=== PATIENT | female | born 1945 | race Caucasian/White ===

== ENCOUNTER 2020-01-12 20:19 | Emergency (ER) | payer MEDICARE, OTHER ==
[~2020-01-12] VITALS: Ht 160 cm; Wt 98.4 kg
--- NOTE | 2020-01-12 21:34 | NUR ---
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 Will come to [facility].
[2020-01-12 21:56] LABS: BASOPHILS # (AUTO) 0.02 x10^3/uL (0-0.1); BASOPHILS % (AUTO) 0 % (0-1); EOSINOPHILS # (AUTO) 0.15 x10^3/uL (0-0.4); EOSINOPHILS % (AUTO) 2 % (1-7); LYMPHOCYTES # (AUTO) 1.25 x10^3/uL (1-3.4); LYMPHOCYTES % (AUTO) 15 % (22-44); MD NO; MEAN CORPUSCULAR HGB CONC 32.4 g/dL (32.4-35.8); MEAN CORPUSCULAR VOLUME 83.4 fL (80-100); MEAN PLATELET VOLUME 8.8 fL (7.4-10.4); MONOCYTES # (AUTO) 0.65 x10^3/uL (0.2-0.8); MONOCYTES % (AUTO) 8 % (2-9); NEUTROPHILS # (AUTO) 6.59 x10^3/uL (1.8-6.8); NEUTROPHILS % (AUTO) 76 % (42-75); PLATELET COUNT 243 x10^3/uL (130-400); RED BLOOD COUNT 5.93 x10^6/uL (3.82-5.3); RED CELL DISTRIBUTION WIDTH 14.9 % (9.6-15.2)
[2020-01-12 22:05] LABS: ALANINE AMINOTRANSFERASE 31 U/L (12-78); ALBUMIN 3.7 g/dL (3.4-5.0); ANION GAP 6 mmol/L (5-15); CALCIUM 8.6 mg/dL (8.5-10.1); CHLORIDE 105 mmol/L (98-107); CREATININE 1.05 mg/dL (0.55-1.02)
[2020-01-12 22:09] LABS: ALKALINE PHOSPHATASE 89 U/L (45-117); BILIRUBIN,TOTAL 0.3 mg/dL (0.2-1.0); TOTAL PROTEIN 7.5 g/dL (6.4-8.2); TROPONIN I < 0.015 ng/mL (0.000-0.045)
[2020-01-12 22:39] LABS: MICROSCOPIC AUTO
[2020-01-12] MEDS ORDERED: CEFDINIR 300 MG CAPSULE ONE (23:49)
[2020-01-12 23:56] VITALS: BP 144/87
[2020-01-13] MEDS ORDERED: CEFDINIR 300 MG CAPSULE PO ONE
== END 2020-01-12 23:58 | disposition home or self-care (01) ==
LOC: ED 21:18
DX: R55 Syncope and collapse (principal); N30.00 Acute cystitis without hematuria; R19.7 Diarrhea, unspecified; R53.1 Weakness; R94.31 Abnormal electrocardiogram [ECG] [EKG]
CPT/HCPCS: 36415; 80053; 81001; 82962; 84439; 84443; 84484; 85025; 87086; 93005; 99285